=== PATIENT | male | born 2005 | race Hispanic/Latino ===

== ENCOUNTER 2024-10-03 09:05 | Emergency (ER) | payer BC ==
[~2024-10-03] VITALS: Ht 170.2 cm; Wt 83.0 kg
--- NOTE | 2024-10-03 09:12 | ERN ---
General Chief Complaint: Abdominal Pain Stated Complaint: EPIGASTRIC PAIN, ABD PAIN Time Seen by MD: 09:07 Source: patient History of Present Illness Initial Comments Patient is a 19-year-old male coming in to be evaluated for generalized abdominal discomfort. Patient states he has got six months of abdominal discomfort. He does also admit to smoking cannabis. Symptoms wax and wane and they also accompanied with diarrhea. Allergies: Coded Allergies: No Known Allergies (Unverified Allergy, Unknown, 10/03/24) Past Medical History Past Medical History: No Pertinent History Past Surgical History: Other Surgical History Other: FINGER ROS Dictation CONSTITUTIONAL: No chills, no fever, no weakness, no diaphoresis, no malaise. HEAD/FACE: No signs of trauma. EENT: No eye pain, no blurred vision, no tearing, no double vision, no ear pain, no ear discharge, no nose pain, no nasal congestion, no throat pain, no throat swelling, no mouth pain. RESPIRATORY: No cough, no orthopnea, no SOB, no stridor, no wheezing. CARDIOVASCULAR: No chest pain, no edema, no palpitations, no syncope. GASTROINTESTINAL/ABDOMINAL: abdominal pain, no constipation, diarrhea, nausea, no vomiting. GENITOURINARY: No abnormal discharge, no dysuria, no frequent urination, no hematuria. No complaints of pain in the genitals. MUSCULOSKELETAL: No back pain, no gout, no joint pain, no joint swelling, no muscle pain, no muscle stiffness, no neck pain. INTEGUMENTARY: No change in color, no change in hair/nails, no dryness, no lesion, no lumps, no rash. NEUROLOGICAL/PSYCH: No anxiety, not depressed, no emotional problem, no headache, no numbness, no pre-existing deficit, no history of seizures, no tremors, no weakness. HEMATOLOGIC/LYMPHATIC: Not anemic, no history of blood clots, no apparent bleeding, no bruising, glands not swollen. All Systems Negative, Except as Noted. Physical Exam Physical Exam Dictation VITAL SIGNS: Reviewed. GENERAL APPEARANCE: Alert, oriented x3, no acute distress, obese. HEAD AND FACE: Non-traumatic. EYES: PERRL, pink conjunctivas, eyelid no trauma, anterior chamber clear. EARS: Pinnas intact and no signs of trauma or erythema. Ear canals clear and no discharge. TMs no erythema. NOSE: No discharge, no bleeding. OROPHARYNX: Mouth normal, teeth no caries, tongue pink. Pharynx clear, no erythema. Tonsils no exudates, no abscesses noted. Mucous membrane moist. NECK: Supple, non-tender, no thyromegaly, no masses, no JVD, no bruits. BREAST: Deferred. CHEST: No tenderness, no crepitus, no paradoxical movement, no retractions. LUNGS: Clear, well-ventilated, symmetric, no rales, no wheezing, no rhonchi, no stridor, good breath sounds bilaterally. HEART: Regular rate, regular rhythm, no murmur, no gallops. VASCULAR: No peripheral edema. ABDOMEN: Soft, positive bowel sounds, nondistended, no guarding, nontender, no rebound, no masses no hepatomegaly, no splenomegaly, no Gupta's sign, no hernias. RECTAL: Deferred. GENITAL: Deferred. NEUROLOGICAL: Normal speech, gross motor function intact, gross sensory function intact. MUSCULOSKELETAL: Neck nontender, full range of motion, back nontender, full range of motion. EXTREMITIES: Nontender, full range of motion. SKIN: Color pink, dry, no turgor, no rash, no lacerations, no abrasions, no contusions. LYMPHATICS: Deferred. Results Laboratory and Microbiology Lab and Micro Result Laboratory Tests Test 10/03/24 09:21 White Blood Count 8.6 K/uL (4.8-10.8) Red Blood Count 6.04 MIL/uL (4.50-6.20) Hemoglobin 16.7 g/dL (14.0-18.0) Hematocrit 50.6 % (42-54) Mean Corpuscular Volume 83.8 fL (80-100) Mean Corpuscular Hemoglobin 27.6 pg (27.0-33.0) Mean Corpuscular Hemoglobin Concent 33.0 g/dL (32.0-36.0) Red Cell Distribution Width 12.3 % (11.0-15.5) Platelet Count 248 K/uL (130-400) Mean Platelet Volume 11.0 fL (7.5-10.5) H Immature Granulocyte % (Auto) 0.6 % (0-1) Neutrophils (%) (Auto) 56.0 % (40.0-77.0) Lymphocytes (%) (Auto) 31.7 % (21.0-51.0) Monocytes (%) (Auto) 6.4 % (3.0-13.0) Eosinophils (%) (Auto) 4.0 % (0.0-8.0) Basophils (%) (Auto) 1.3 % (0.0-5.0) Neutrophils # (Auto) 4.8 K/uL (1.8-7.7) Lymphocytes # (Auto) 2.7 K/uL (1.0-4.8) Monocytes # (Auto) 0.6 K/uL (0.1-1.0) Eosinophils # (Auto) 0.34 K/uL (0.00-0.70) Basophils # (Auto) 0.11 K/uL (0.00-0.20) Absolute Immature Granulocyte (auto 0.05 K/uL (0-1) Nucleated Red Blood Cells 0.0 % (0.0-0.19) Sodium Level 141 mmol/L (136-145) Potassium Level 4.3 mmol/L (3.5-5.1) Chloride Level 104 mmol/L (101-111) Carbon Dioxide Level 31 mmol/L (21-32) Blood Urea Nitrogen 14 mg/dL (7-18) Creatinine 0.9 mg/dL (0.5-1.3) Glomerular Filtration Rate Calc 125 mL/min (>90) Random Glucose 101 mg/dL (70-105) Total Calcium 9.3 mg/dL (8.5-10.1) Total Bilirubin 0.7 mg/dL (0.2-1.0) Aspartate Amino Transf (AST/SGOT) 51 U/L (10-37) H Alanine Aminotransferase (ALT/SGPT) 119 U/L (12-78) H Alkaline Phosphatase 103 U/L (50-136) Total Creatine Kinase 191 U/L (21-232) Total Protein 8.5 g/dL (6.0-8.3) H Albumin 4.0 g/dL (3.5-5.0) Labs Reviewed?: Yes MDM MDM: DIFFERENTIAL DIAGNOSIS: VIRAL GASTROENTERITIS, UTI, DEHYDRATION, CANNABIS ABUSE PATIENT IS A 19-YEAR-OLD MALE COMING IN TO BE EVALUATED FOR ABDOMINAL DISCOMFORT NAUSEA AND VOMITING. PATIENT DOES STATE HE HAS BEEN SMOKING CANNABIS. LABORATORY WORKUP NEGATIVE FOR ACUTE FINDINGS MILDLY ELEVATED LIVER ENZYMES MUCOUS MEMBRANES DRY PATIENT RECEIVED IV FLUIDS STATES HE FEELS BETTER. PATIENT WILL BE DISCHARGED IN STABLE CONDITION WITH DIAGNOSIS OF VIRAL GASTROENTERITIS AND CANNABIS ABUSE. ED Course Orders Procedure Category Date Status Time Cbc With Differential LAB 10/03/24 Complete 09:09 Comprehensive LAB 10/03/24 Complete Metabolic Panel 09:09 Urinalysis Profile LAB 10/03/24 In Process 09:09 Lactated Ringers PHA 10/03/24 Complete 1000ml (Lactated 09:30 Lidocaine Hcl 2% PHA 10/03/24 Complete Viscous (Lidocaine Hcl 09:30 Mag/Alum/Simeth 30ml PHA 10/03/24 Complete (Maalox Plus 30ml) 09:30 Pantoprazole 40mg Inj PHA 10/03/24 Complete (Protonix 40mg Inj 09:30 Creatine Kinase, Total LAB 10/03/24 Complete 09:09 Current Medications Medications (Trade) Dose Ordered Sig/Barb Route PRN Reason Start Time Stop Time Status Last Admin Dose Admin Al Hydroxide/Mg Hydroxide (MAALox PLUS 30ML) 30 ml ONCE ONCE PO 10/03/24 09:30 10/03/24 09:31 DC 10/03/24 10:48 Lactated Ringer's 1,000 ml @ 0 mls/hr ONCE ONCE IV 10/03/24 09:30 10/03/24 09:31 DC 10/03/24 10:49 Lidocaine HCl (Lidocaine HCl 2% Viscous) 10 ml ONCE ONCE PO 10/03/24 09:30 10/03/24 09:31 DC 10/03/24 10:48 Pantoprazole Sodium (PROTonix 40MG INJ) 40 mg ONCE ONCE IVP 10/03/24 09:30 10/03/24 09:31 DC 10/03/24 10:48 Vital Signs Date Time Temp Pulse Resp B/P (MAP) Pulse Ox O2 Delivery O2 Flow Rate FiO2 10/03/24 10:43 98.1 77 20 132/74 100 Room Air* 0 21 10/03/24 09:06 97.9 60 16 119/71 98 Room Air 0 DX & DISP Disposition: Discharge Departure Impression: Primary Impression: Viral gastroenteritis Additional Impression: Cannabis abuse Condition: Stable Scripts Pantoprazole Sodium (Protonix) 40 Mg Ectab 1 TAB PO DAILY for 30 Days, #30 TAB 0 Refills Prov: CODY MONTALVO MD 10/03/24 Additional Instructions: FOLLOW-UP WITH PRIMARY CARE PROVIDER IN 1 TO 2 DAYS. TAKE MEDICATIONS DIRECTED HERE IN THE EMERGENCY ROOM. OKAY TO CONTINUE HOME MEDICATIONS UNLESS OTHERWISE DISCUSSED DURING YOUR VISIT IN THE EMERGENCY ROOM TODAY. RETURN TO YOUR NEAREST EMERGENCY ROOM IF SYMPTOMS WORSEN OR IF THERE IS NO IMPROVEMENT. CALL 911 IF YOU NEED IMMEDIATE ASSISTANCE. TAKE TYLENOL [id number] NEEDED AND IF NO CONTRAINDICATIONS ARE PRESENT. INCREASE ORAL HYDRATION. A WOUND CULTURE OR URINE CULTURE WAS ORDERED HERE IN THE EMERGENCY ROOM DEPARTMENT PLEASE FOLLOW-UP WITH PRIMARY CARE PROVIDER AND ADVISE THEM TO GET REPEAT PORTS FROM OUR FACILITY. IF YOU HAD ANY MARILEE WRAP/SPLINTS THAT WERE APPLIED HERE, PLEASE DO NOT REMOVE THEM UNTIL YOU SEE YOUR PRIMARY CARE OR SPECIALTY. REFERRALS: Referrals: MARVIN GOLDMAN MD Time of Disposition: 11:10 CODY MONTALVO MD Oct 03, 2024 09:12
[2024-10-03 09:32] LABS: BASOPHILS # (AUTO) 0.11 K/uL (0.00-0.20); BASOPHILS % (AUTO) 1.3 % (0.0-5.0); EOSINOPHILS # (AUTO) 0.34 K/uL (0.00-0.70); HEMATOCRIT 50.6 % (42-54); IMMATURE GRANULOCYTE ABSOLUTE 0.05 K/uL (0-1); LYMPHOCYTES # (AUTO) 2.7 K/uL (1.0-4.8); LYMPHOCYTES % (AUTO) 31.7 % (21.0-51.0); MEAN CORPUSCULAR HEMOGLOBIN 27.6 pg (27.0-33.0); MEAN CORPUSCULAR VOLUME 83.8 fL (80-100); MONOCYTES # (AUTO) 0.6 K/uL (0.1-1.0); MONOCYTES % (AUTO) 6.4 % (3.0-13.0); NEUTROPHILS # (AUTO) 4.8 K/uL (1.8-7.7); PLATELET COUNT (AUTO) 248 K/uL (130-400); RED BLOOD CELL COUNT(AUTO) 6.04 MIL/uL (4.50-6.20); RED CELL DISTRIBUTION WIDTH 12.3 % (11.0-15.5); WHITE BLOOD COUNT (AUTO) 8.6 K/uL (4.8-10.8)
[2024-10-03 09:44] LABS: CREATININE 0.9 mg/dL (0.5-1.3); POTASSIUM 4.3 mmol/L (3.5-5.1)
[2024-10-03 09:50] LABS: BILIRUBIN,TOTAL 0.7 mg/dL (0.2-1.0); TOTAL PROTEIN, SERUM 8.5 g/dL (6.0-8.3)
[2024-10-03 10:43] VITALS: BP 132/74; PULSE 77; RESP 20; TEMP 98.1; O2SAT 100
[2024-10-03] MEDS: PANTOPrazole 40 MG/VIAL IVP ONE (10:48)
[2024-10-03] MEDS: LIDOCAINE HCL 2% VISCOUS 15 ML UDCUP PO ONE (10:48)
[2024-10-03] MEDS: MAG/ALUM/SIMETH 30 ML UDCUP PO ONE (10:48)
[2024-10-03] MEDS: LACTATED RINGERS 1000ML 1,000 ML IV ONE (10:49)
[2024-10-03] MEDS ORDERED: PANT40TA55 PO (11:11)
[2024-10-03 11:15] LABS: APPEARANCE,URINE CLEAR (CLEAR); BILIRUBIN,URINE NEGATIVE (NEGATIVE); COLOR,URINE LIGHT-YELLOW (YELLOW); GLUCOSE, URINE (UA) NEGATIVE (NEGATIVE); KETONES,URINE NEGATIVE (NEGATIVE); LEUKOCYTE ESTERASE ,URINE NEGATIVE Leu/uL (NEGATIVE); NITRATE,URINE NEGATIVE (NEGATIVE); OCCULT BLOOD,URINE NEGATIVE (NEGATIVE); PH,URINE 5.5 (5.0-8.0); PROTEIN,URINE NEGATIVE (NEGATIVE); UROBILINOGEN,URINE 0.2 mg/dL (0.2-1.0)
[2024-10-03 11:16] LABS: ADD UA MICROSCOPIC NO
== END 2024-10-03 11:28 | disposition home or self-care (01) ==
LOC: EDH 09:05
DX: A08.4 Viral intestinal infection, unspecified (principal); F12.10 Cannabis abuse, uncomplicated
CPT/HCPCS: 99284; 96374; 82550; 80053; 85025; 81003; 36415; J7120; J2470; 99283